=== PATIENT | female | born 1995 | race Caucasian/White ===

== ENCOUNTER 2019-01-28 17:16 | Inpatient (IN) ==
[2019-01-28] MEDS ORDERED: Ondansetron 4 MG/2 ML VIAL IVP PRN ×2 (17:40→19:04)
[2019-01-28] MEDS ORDERED: Famotidine 20 MG/2 ML VIAL IVP PRN (17:40)
[2019-01-28] MEDS ORDERED: *HR* Nalbuphine 10 MG/ML AMPUL IVP PRN (17:40)
[2019-01-28] MEDS ORDERED: Metoclopramide 10 MG/2 ML VIAL IVP PRN (17:40)
[2019-01-28] MEDS ORDERED: Naloxone 0.4 MG/ML INJ IVP PRN ×2 (17:40→19:04)
[2019-01-28] MEDS ORDERED: Lidocaine 1% 20 ML MDV INFILT PRN (17:40)
[2019-01-28] MEDS ORDERED: Ringers Solution, Lactated 1,000 ML IVC SCH (17:45)
[2019-01-28] MEDS ORDERED: Oxytocin 20 units/ LR 1000 mL 20 UNIT/1,000 ML BAG IVC SCH (17:45)
--- NOTE | 2019-01-28 18:01 | OB/GYN History & Physical ---
Date of Encounter: 01/28/19 Time of Encounter: 17:59 Assessment and Plan (1) 39 weeks gestation of Current visit: Yes Status: Acute (2) Intrauterine Current visit: Yes Status: Acute (3) Intact amniotic membranes during in third trimester Current visit: Yes Status: Acute (4) Type A blood, Rh positive Current visit: Yes Status: Acute (5) Encounter for induction of labor Current visit: Yes Status: Acute Admit to L&D for induction of labor Start pitocin and increase to adequate contraction pattern Pain management plan is undecided Labs: cbc and type and screen GBS negative - no prophylaxis CEFM Anticipate Dr. Gilbert is OB editor continuity and script and is available as needed History of Present Illness Chief complaint: IOL HPI: Ms. Ruelas is a 23 year old female at 39 weeks 0 days gestation with an estimated date of of 02/04/19 dated by initial exam. She presents for elective induction of labor secondary to suspected macrosomia. She endorses good movement and denies leakage of fluid, vaginal bleeding, contractions. She has been followed by the midwives throughout her . records are available electronically and have been reviewed. Labs: A+ GBS- HIV- Hep B- T. Palladium- GC/CL- Rubella immune Varicella immune Past Med Surg Social Fam HX - Past Medical History Medical history: non-contributory Psychiatric history: no psych history - Past Surgical History Surgical History: non-contributory, other Additional surgical history: tonsilectomy, upper GI scope - Social History Smoking Status: Never smoker Smokeless Tobacco Status: No Alcohol use: none Drug use: none Obstetrical History - Pregnancies : 1 Para: 0 Term: 0 : 0 Ab's: 0 Livin Medications and Allergies Ferrous Sulfate 1 tab PO DAILY 01/28/19 [History] Formula Tablet 1 tab PO DAILY 01/28/19 [History] Allergy/AdvReac Type Severity Reaction Status Date / Time iodine Allergy Hives Verified 01/28/19 17:53 Review of System OB All systems PM: reviewed and no additional remarkable complaints except as stated Exam - Constitutional Constitutional: well developed, well nourished, no acute distress - HEENT HEENT: PERRL, Normocephaly, Mucus Membranes Moist - Neck Neck exam: full ROM - Lungs Respiratory exam: CTAB - Cardiovascular Cardiovascular exam: RRR, +S1, +S2 - Breasts Breast: bilateral: normal - Abdomen Abdomen: Present: bowel sounds normal, gravid, non tender - Extremities Extremities exam: full ROM, normal capillary refill, normal inspection, radial pulses palpable and symmetrical - Vulva Vulva: bilateral: normal - Vagina Vagina: Present: normal moisture - Cervix Dilation: 3 Effacement: 90 Station: -2 - Uterus Uterus exam: Present: normal size, normal contour - Adnexa Adnexa: bilateral: normal - Anus/Rectum Anus/Rectum: Present: normal perianal skin Results All other labs normal. - VTE Reasons for not Prescribing Prophylaxis: Treatment not Indicated - Low risk for VTE
[2019-01-28 19:03] LABS: Basophils % 0.2 %; Eosinophils % 0.2 %; Hematocrit 32.7 % (35.3-44.9); Hemoglobin 10.8 g/dL (11.5-15.4); Immature Granulocytes % 0.6 % (0-4); Lymphocytes # 1.5 K/mcL (0.6-4.6); Lymphocytes % 13.8 %; Mean Corpuscular Hemoglobin 27.6 pg (28.0-33.3); Mean Corpuscular Volume 83.4 fL (83.0-100.0); Mean Platelet Volume 11.7 fL (9.4-12.4); Monocytes # 0.7 K/mcL (0.0-1.3); Monocytes % 6.8 %; Neutrophils # 8.4 K/mcL (1.6-8.9); Platelet Count 210 K/mcL (140-400); Red Blood Count 3.92 M/mcL (3.82-4.97); Red Cell Distribution Width 12.9 % (11.5-14.5); Segmented Neutrophils % 78.4 %; White Blood Count 10.8 K/mcL (4.3-11.1)
[2019-01-28] MEDS ORDERED: EPHEDrine 50 MG/ML VIAL IVP PRN (19:04)
[2019-01-28] MEDS ORDERED: Ropivacaine/PF 0.2% 20 ML VIAL EP ONE (19:04)
[2019-01-28] MEDS ORDERED: *HR* FentaNYL (PF) 100 MCG/2 ML VIAL EP ONE (19:04)
--- NOTE | 2019-01-28 19:08 | Anesthesia Evaluation PreOp ---
Date of Encounter: 01/28/19 Time of Encounter: 19:01 - Past History Planned Operation: CIERRA Cardiac History: Denies any Significant Hx Pulmonary History: Denies Any Significant HX CLOTHES WRINGER History: Denies Any Significant HX Other Medical History: GERD Anesthesia History: No Prior Anesthetic Complications, Past Anesthesia (EGD, tonsillectomy) : Yes Alcohol Use: none Drug use: none Medications and Allergies Ferrous Sulfate 1 tab PO DAILY 01/28/19 [History] Formula Tablet 1 tab PO DAILY 01/28/19 [History] Allergy/AdvReac Type Severity Reaction Status Date / Time iodine Allergy Hives Verified 01/28/19 17:53 - Meds/Allergy Pre-op Review Medications Reviewed: Yes Allergies Reviewed: Yes Beta Blockers on Current Med List: No Anesthesia Results - Labs 01/28/19 18:48 Anesthesia Exam BP 131/78 P 87 R 16 T 97.2 Height: 5'10" Weight: 120.2kg NPO (# of Hours): 4 Pain Scale: 2 Pain Scale Used: Numeric (1 - 10) - HEENT Pupil (Motor): Pupils equal Mallampati: II Teeth: Normal Oral Opening: Greater than 3 - CLOTHES WRINGER LOC: Oriented CLOTHES WRINGER Motor: Normal RUE, Normal LUE, Normal RLE, Normal LLE, Normal Face CLOTHES WRINGER Sensory: Normal: RUE, LUE, RLE, LLE, Face - Cardiac Rhythm: Regular Murmur: None JVD: No Carotid Bruit: No - Pulmonary Breath Sounds: bilateral Clear Respiratory Effort: Symmetrical Anesthesia Assess/Plan ASA Score: 2 Level of consciousness: Cooperative, Oriented, Tranquil Anesthetic Plan: Epidural Autologous Blood: No Monitoring Plan: Standard Monitors Recovery Plan: Other
[2019-01-28 19:12] LABS: Amphetamine Screen,Urine Negative ng/mL (Cutoff=1000); Barbiturate Screen,Urine Negative ng/mL (Cutoff=200); Benzodiazepines Screen,Urine Negative ng/mL (Cutoff=200); Cannabinoid Screen,Urine Negative ng/mL (Cutoff = 50); Cocaine Screen,Urine Negative ng/mL (Cutoff= 300); Opiate Screen,Urine Negative ng/mL (Cutoff=300); Phencyclidine Screen,Urine Negative ng/mL (Cutoff=25)
[2019-01-28] MEDS ORDERED: Epidural Premix (fent/bupiv) 110 ML EP SCH (19:15)
[2019-01-28] MEDS ORDERED: *HR* FentaNYL (PF) 100 MCG/2 ML VIAL ONE (21:21)
[2019-01-28] MEDS ORDERED: Ropivacaine/PF 0.2% 20 ML VIAL ONE (21:21)
--- NOTE | 2019-01-28 22:29 | OB Labor Progress Note ---
Date of Encounter: 01/28/19 Time of Encounter: 22:27 Labor Progress Note - Subjective Subjective: Pt requesting epidural - Cervix Cervix: 5/90/-1 - Heart Tones Heart Tones: Baseline 150 Moderate variability Accelerations present 15x15 Late decelerations FHR category II - Ravenden Ravenden: Contractions every 2-4 minutes and palpate moderate - Interventions Interventions: Position changes and lates resolved - Plan Physician notified: No Plan: Continue expectant management Determined pt was actually in labor prior to admission for induction as she has continued to make cervical change without augmentation May have epidural Anticipate
--- NOTE | 2019-01-28 22:53 | Anesthesia Procedures ---
Date of Encounter: 01/28/19 Time of Encounter: 21:26 Procedures: Anesthesia - Epidural/Spinal Patient ID/Chart reviewed: Yes Patient examined: Yes OB Eval: Gestational age: 39 OB Eval: : 1 OB Eval: Hx Para: 0 OB Eval: Dilated at (cm): 5 OB Eval: Contractions: Non-stressed pattern Consent Obtained: Yes Supplemental Oxygen: None/Room Air Site Prep: Aseptic Technique, Sterile prep and drape, Povidone-Iodine 1% Patient position: upright Local Anesthetic: Lidocaine 1% Amount of Local Anesthetic used: 3 Touhy Needle Gauge: 18 Touhy Needle Depth (cm): 7 Catheter Depth at Skin (cm): 15 Test Dose (1.5% Lido + Epi): Volume given (mls): 3 Test Dose Result: Negative Loading Dose: Fentanyl (mcg): 100 Loading Dose: Other: Ropivicaine 0.2% 5ml, 3ml normal saline Loading Dose Administered: Thru Catheter Infusion Med: 0.125% Bupivacaine w/ 2 mcg/ml Fentanyl Infusion Rate (mls/hr): [address]: Tegaderm, Tape Interspace Used: L3-L4 Loss of Resistance (PETRONA): Yes Blood: No CSF: No Paresthesia: No Procedure: CIERRA placed 1st pass in upright position. PETRONA achieved with normal saline. Catheter threaded with ease to 15cm at the skin. Test dose negative. Pt stated comfort following epidural bolus administration. VSS Vitals + FHT's: 2126 BP 167/100 P 96 R 20 2149 BP 147/69 P 98 R 16
--- NOTE | 2019-01-29 01:29 | OB/GYN Procedure Note ---
Delivery - Delivery Date: 01/29/19 Provider: Whit Cabezas Intrapartum events: none Delivery induction: none Delivery monitor: external FHT, external uterine Anesthesia: epidural Quantitated Blood Loss: 400 - (s) Infant A Delivery Date: 01/29/19 Infant Delivery Time: 00:44 Presentation: vertex Position: ADELSO Route of delivery: Gender: Male Viability: Viable Pounds: 9 Ounces: 13 Weight Gram: 4.46 kg at 1 minute: 7 at 5 mins: 9 Shoulder Dystocia: not encountered Specimens collected: cord blood Placenta: spontaneous Cord: 3 umbilical vessels - Repair Episiotomy: none Laceration Description: Perineal - 1st Degree - Complications Delivery complications: none Delivery comments: This is a 23 year old G1 now P1001 who was admitted for spontaneous labor. She progressed spontaneously to the second stage of labor. She pushed for about 20 minutes. She delivered a viable, male , ADELSO "Enoch" over a first-degree laceration. A nuchal cord was not identified. A shoulder dystocia was not encountered. The was placed on the maternal abdomen and allowed to transition spontaneously. The cord was double clamped by drawing machine operator after pulsations ceased and cut by FOB. scores were 7 at 1 minute and 9 at 5 minutes. The weighed 9lbs 13oz (4460g). The placenta delivered spontaneously, intact (Carpenter) with a 3-vessel cord. Inspection revealed a first-degree laceration. The uterus was boggy with active bleeding. A single dose of Methergine was administered subcutaneously in the right thigh per RN and bleeding slowed within minutes. EBL was 400 mL. Placenta and umbilical artery blood gases were not sent. There were no complications during the procedure. Mom and baby are skin to skin following delivery. - Disposition Mom disposition: stable in LDR disposition: stable in LDR
[2019-01-29] MEDS ORDERED: Oxytocin 20 units/ LR 1000 mL 20 UNIT/1,000 ML BAG IVC SCH (05:01)
[2019-01-29] MEDS ORDERED: Acetaminophen 325 MG TABLET PO PRN (05:01)
[2019-01-29] MEDS ORDERED: Benzocaine/Menthol 56 GM AEROSOL SPRAY TP PRN (05:01)
[2019-01-29] MEDS: Prenatal Vit/FA 1 EACH TABLET PO SCH (08:13)
[2019-01-29] MEDS: Ibuprofen 600 MG TABLET PO PRN ×2 (10:51→20:11)
[2019-01-30] MEDS: Ibuprofen 600 MG TABLET PO PRN (06:53)
[2019-01-30 07:43] VITALS: BP 120/80
[2019-01-30] MEDS: Prenatal Vit/FA 1 EACH TABLET PO SCH (09:09)
--- NOTE | 2019-01-30 09:14 | Discharge Summary ---
Date of Encounter: 01/30/19 Time of Encounter: 09:10 - Discharge Diagnosis (1) Vaginal delivery Priority: Primary Status: Acute Comments: continue routine care discharge home today follow up with CNM in 4-6 weeks (2) Breast feeding status of mother Priority: Secondary Status: Acute Comments: support prn - Discharge Medications Prescriptions: New Breast Pump [BREAST PUMP] 1 each .ROUTE AD #1 each Benzocaine/Menthol [place] [Dermoplast [place]] 1 appl TP QID PRN aerosol PRN Reason: See Comments Ibuprofen [Motrin] 600 mg PO Q6HR PRN #60 tablet PRN Reason: Cramping Continued Formula Tablet 1 tab PO DAILY Discontinued Ferrous Sulfate 1 tab PO DAILY Home Medications: Formula Tablet 1 tab PO DAILY 01/28/19 [History] Benzocaine/Menthol [place] [Dermoplast [place]] 1 appl TP QID PRN aerosol 01/30/19 [Rx] Breast Pump [BREAST PUMP] 1 each .ROUTE AD #1 each 01/30/19 [Rx] Ibuprofen [Motrin] 600 mg PO Q6HR PRN #60 tablet 01/30/19 [Rx] Allergies/Adverse Reactions: Allergy/AdvReac Type Severity Reaction Status Date / Time iodine Allergy Hives Verified 01/28/19 17:53 Data Procedures and tests throughout hospitalization: Laboratory Tests 01/28/19 01/28/19 18:48 18:48 WBC 10.8 RBC 3.92 Hgb 10.8 L Hct 32.7 L MCV 83.4 MCH 27.6 L MCHC 33.0 RDW 12.9 Plt Count 210 MPV 11.7 Immature Gran % 0.6 Seg Neutrophils % 78.4 Lymphocytes % 13.8 Monocytes % 6.8 Eosinophils % 0.2 Basophils % 0.2 Neutrophils # 8.4 Lymphocytes # 1.5 Monocytes # 0.7 Eosinophils # 0.0 Basophils # 0.0 Urine Opiates Screen Negative Ur Buprenorphine Scrn Negative Ur Barbiturates Screen Negative Ur Phencyclidine Scrn Negative Ur Amphetamines Screen Negative U Benzodiazepines Scrn Negative Urine Cocaine Screen Negative U Marijuana (THC) Screen Negative Ur Drug Screen Interp See Below Date of admission: 01/28/19 17:16 Primary care physician: Femi Diallo MD Consults: 01/29/19 05:01 Consult to Case Advocate [CONS] Routine Comment: Vaginal delivery, consult needed Discharging clinician: Thalia Dow Anticipated date of discharge: 01/30/19 - Patient Status Disposition: Home, Self-Care Condition: Good - Discharge Instructions Follow Up With: Femi Diallo MD [Primary Care Provider] - Whit Cabezas [Advanced Practice Nurse] - - Diet and Activity Activity: increase activity as tolerated Diet: regular diet Hospital Course Reason for admission: active labor Delivery: Episiotomy: none Laceration: 1st degree Other procedures: none complications: none Discharge diagnosis: IUP at term delivered baby: male (breast feeding) Time Attestation: Total time spent providing and/or coordinating discharge services: Time Spent: Less than 30 minutes Exam - Constitutional Vitals: Temp Pulse Resp BP Pulse Ox 97.9 F 80 20 120/80 100 01/30/19 07:43 01/30/19 07:43 01/30/19 07:43 01/30/19 07:43 01/30/19 07:43 General appearance IM: A&O X 3, pleasant, answers questions appropriately - Respiratory Respiratory exam: Present: CTAB - Cardiovascular Cardiovascular exam IM: Present: RRR, +S1, +S2 - GI/Abdominal GI/Abdominal exam IM: normal bowel sounds - Uterine Tone: Firm Uterus Position: At Umbilicus, Midline - Extremities Exam Extremities exam IM: Present: full ROM, normal capillary refill, normal ins pection - Neurological Exam Neurological exam: alert, oriented X3, reflexes normal
[2019-01-30] MEDS ORDERED: FLU Vac QV 19-20 (6Month+)/PF 0.5 ML SYRINGE IM ONE (10:42)
== END 2019-01-30 14:40 | disposition home or self-care (01) | DRG 560 ==
LOC: 1NENULAB 17:16 → 1NENUOBS 01-29 03:51
PROVIDERS: ADMIT Advanced Practice Midwife; ATTEND Advanced Practice Midwife

== ENCOUNTER 2020-06-01 06:48 | Inpatient (IN) ==
[2020-06-01] MEDS ORDERED: Epidural Premix (fent/bupiv) 110 ML EP SCH (07:30)
[2020-06-01] MEDS ORDERED: EPHEDrine 50 MG/ML VIAL IVP PRN (07:30)
[2020-06-01] MEDS ORDERED: Ringers Solution, Lactated 1,000 ML ONE (07:32)
[2020-06-01] MEDS: Ringers Solution, Lactated 1,000 ML IVC SCH ×2 (07:35→09:52)
[2020-06-01] MEDS ORDERED: *HR* FentaNYL (PF) 100 MCG/2 ML VIAL ONE (07:37)
[2020-06-01] MEDS ORDERED: Ropivacaine/PF 0.2% 20 ML VIAL ONE (07:37)
[2020-06-01] MEDS ORDERED: Lidocaine 1% 20 ML MDV INFILT PRN (07:38)
[2020-06-01] MEDS ORDERED: Metoclopramide 10 MG/2 ML VIAL IVP PRN (07:38)
[2020-06-01] MEDS ORDERED: Famotidine 20 MG/2 ML VIAL IVP PRN (07:38)
[2020-06-01] MEDS ORDERED: *HR* Nalbuphine 10 MG/ML AMPUL IV PRN (07:38)
[2020-06-01] MEDS ORDERED: Azithromycin 500 MG in 0.9 % Sodium Chloride 250 ML IVPB ONE (07:38)
[2020-06-01] MEDS ORDERED: Ondansetron 4 MG/2 ML VIAL IVP PRN (07:38)
[2020-06-01 08:30] LABS: Basophils # 0.1 K/mcL (0.0-0.2); Basophils % 0.3 %; Eosinophils % 0.2 %; Hemoglobin 9.9 g/dL (11.5-15.4); Immature Granulocytes % 0.4 % (0-4); Lymphocytes # 2.4 K/mcL (0.6-4.6); Lymphocytes % 14.3 %; Mean Corpuscular HGB Conc 30.9 g/dL (31.6-35.5); Mean Corpuscular Hemoglobin 25.1 pg (28.0-33.3); Mean Platelet Volume 11.7 fL (9.4-12.4); Platelet Count 218 K/mcL (140-400); Red Blood Count 3.95 M/mcL (3.82-4.97); Red Cell Distribution Width 13.2 % (11.5-14.5); Segmented Neutrophils % 78.8 %; White Blood Count 16.5 K/mcL (4.3-11.1)
[2020-06-01 09:01] LABS: Amphetamine Screen,Urine Negative ng/mL (Cutoff=1000); Barbiturate Screen,Urine Negative ng/mL (Cutoff=200); Benzodiazepines Screen,Urine Negative ng/mL (Cutoff=200); Cannabinoid Screen,Urine Negative ng/mL (Cutoff = 50); Cocaine Screen,Urine Negative ng/mL (Cutoff= 300); Opiate Screen,Urine Negative ng/mL (Cutoff=300); Phencyclidine Screen,Urine Negative ng/mL (Cutoff=25)
[2020-06-01] MEDS ORDERED: Oxytocin 20 units/ LR 1000 mL 20 UNIT/1,000 ML BAG IVC ONE (11:56)
[2020-06-01] MEDS ORDERED: Benzocaine/Menthol 56 GM AEROSOL SPRAY TP PRN (13:21)
[2020-06-01] MEDS ORDERED: Acetaminophen 325 MG TABLET PO PRN (13:21)
[2020-06-01] MEDS ORDERED: Oxytocin 20 units/ LR 1000 mL 20 UNIT/1,000 ML BAG IVC SCH (13:21)
[2020-06-01] MEDS ORDERED: Lanolin 7 G OINT...G. TP PRN (13:21)
[2020-06-01 15:06] LABS: Alanine Aminotransferase 14 Units/L (7-52); Aspartate Amino Transferase 19 Units/L (13-39); BUN/Creatinine Ratio 14 (6-26); Blood Urea Nitrogen 7 mg/dL (6-20); Lactate Dehydrogenase 218 Units/L (140-271); Uric Acid 2.8 mg/dL (2.3-7.6); eGFR For African Americans > 60 (> 60); eGFR For Non-African Americans > 60 (> 60)
[2020-06-01] MEDS: Ibuprofen 600 MG TABLET PO PRN ×2 (15:43→23:40)
[2020-06-02 04:59] LABS: Basophils % 0.2 %; Eosinophils % 0.3 %; Hematocrit 26.2 % (35.3-44.9); Immature Granulocytes % 0.5 % (0-4); Mean Corpuscular HGB Conc 31.7 g/dL (31.6-35.5); Mean Corpuscular Hemoglobin 25.4 pg (28.0-33.3); Mean Corpuscular Volume 80.1 fL (83.0-100.0); Mean Platelet Volume 11.4 fL (9.4-12.4); Monocytes # 0.7 K/mcL (0.0-1.3); Monocytes % 6.1 %; Neutrophils # 8.9 K/mcL (1.6-8.9); Platelet Count 173 K/mcL (140-400); Red Blood Count 3.27 M/mcL (3.82-4.97); Red Cell Distribution Width 13.2 % (11.5-14.5); Segmented Neutrophils % 75.9 %; White Blood Count 11.7 K/mcL (4.3-11.1)
[2020-06-02 05:01] LABS: Hemoglobin 8.3 g/dL (11.5-15.4)
[2020-06-02 08:14] VITALS: BP 105/61
[2020-06-02] MEDS: Ibuprofen 600 MG TABLET PO PRN (08:24)
[2020-06-02] MEDS ORDERED: Prenatal Vit/FA 1 EACH TABLET PO SCH (09:00)
== END 2020-06-02 16:02 | disposition home or self-care (01) | DRG 560 ==
LOC: 1NENULAB 06:48 → 1NENUOBS 14:51
PROVIDERS: ADMIT Advanced Practice Midwife; ATTEND Advanced Practice Midwife